=== PATIENT | female | born 1985 | race Caucasian/White ===

== ENCOUNTER 2017-07-24 09:16 | Emergency (ER) | payer BC, OTHER ==
[~2017-07-24] VITALS: Ht 160 cm; Wt 65.8 kg
--- NOTE | ~2017-07-24 | EKG ---
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
[2017-07-24 09:35] LABS: HEMATOCRIT 48.2 % (37.0-47.0); HEMOGLOBIN 16.1 gm/dL (12.0-15.0); MCH 30.2 pg (26.0-34.0); MCHC 33.4 g/dL (28.0-37.0); MCV 90.5 fL (80.0-100.0); RBC 5.33 mil/uL (4.20-5.00); WBC 13.3 thou/uL (4.0-11.0)
[2017-07-24 09:43] LABS: ANION GAP 15 mmol/L (7-16); BUN 16 mg/dL (7-18); CALCIUM 9.8 mg/dL (8.5-10.1); CHLORIDE 101 mmol/L (98-107); CO2 24 mmol/L (21-32); GLUCOSE 118 mg/dL (74-106); SODIUM 140 mmol/L (136-145)
[2017-07-24 09:52] LABS: LIPASE 155 U/L (73-393); TROPONIN-I < 0.04 ng/mL (<0.06)
[2017-07-24 09:55] LABS: URINE BILIRUBIN NEGATIVE (Negative); URINE BLOOD NEGATIVE (Negative); URINE CLARITY CLEAR; URINE COLOR YELLOW; URINE GLUCOSE-RANDOM* NEGATIVE (Negative); URINE KETONES 3+ (Negative); URINE LEUKOCYTES 1+ (Negative); URINE NITRITE NEGATIVE (Negative); URINE PROTEIN (DIPSTICK) TRACE (Negative); URINE SPECIFIC GRAVITY 1.015 (1.005-1.035); URINE UROBILINOGEN 0.2 E.U./dl (0.2-1.0)
[2017-07-24 10:06] LABS: URINE REDUCING SUBSTANCE NEGATIVE
[2017-07-24 10:07] LABS: CASTS None Seen /LPF (None Seen); SQUAMOUS >10 Many /LPF (0-3)
[2017-07-24 10:08] LABS: BACTERIA 1-9 Few /HPF (None Seen); CRYSTALS None Seen /LPF (None Seen); URINE RBC None Seen /HPF (0-2); URINE WBC 6-15 Few /HPF (0-5)
[2017-07-24 10:13] LABS: AMP/METHAMP Negative (Negative); BARBITURATES Negative (Negative); BENZODIAZEPINES Negative (Negative); COCAINE Negative (Negative); METHADONE Negative (Negative); OPIATES Negative (Negative); PCP Negative (Negative)
[2017-07-24] MEDS ORDERED: LEVSIN0.125 MG PO (10:57)
[2017-07-24] MEDS ORDERED: HYDROCODONE-AP1 EAC6 PO (10:57)
[2017-07-24] MEDS ORDERED: ONDANSETRON HCL4 M2 PO (10:57)
[2017-07-24] MEDS ORDERED: KEFLEX500 M1 PO (10:59)
[2018-02-24] MEDS ORDERED: ZOFRAN ODT8 MG PO (06:42)
[2018-02-24] MEDS ORDERED: PEPCID20 MG PO (06:44)
[2018-02-24] MEDS ORDERED: BACTRIM DS TAB1 EACH PO (06:46)
== END 2017-07-24 13:51 ==
LOC: ER 09:16
PROVIDERS: Physician Assistant
DX: N39.0 Urinary tract infection, site not specified (principal); E87.6 Hypokalemia; F12.90 Cannabis use, unspecified, uncomplicated; Z88.1 Allergy status to other antibiotic agents

== ENCOUNTER 2018-01-11 07:14 | Emergency (ER) | payer BC, OTHER ==
[~2018-01-11] VITALS: Ht 172.7 cm; Wt 79.4 kg
--- NOTE | ~2018-01-11 | EKG ---
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: [facility] : 1985 Requested By: Frantz Pruitt Order Number: [id number] MD: Jomar Carmichael Measurements Intervals [place] Rate: 39 P: 41 TN: 128 QRS: 46 QRSD: 97 T: 55 QT: 489 QTc: 394 Interpretive Statements Sinus bradycardia Otherwise no significant abnormality Compared to ECG 07/24/2017 10:07:18 No significant change was found Electronically Signed On 01-11-2018 8:54:38 CDT by Jomar Carmichael [email or web address] <ELECTRONICALLY SIGNED> By: Jomar Carmichael MD, [facility] 01/11/18 0854 0838 0838 Jomar Carmichael MD, FACC /EPI
[~2018-01-11 07:14] MED LIST: HYDROCODONE-AP1 EAC6 PO; KEFLEX500 M1 PO; LEVSIN0.125 MG PO; ONDANSETRON HCL4 M2 PO
[2018-01-11] MEDS ORDERED: LEXAPRO 10 MG T10 M2 PO (07:35)
[2018-01-11] MEDS ORDERED: ESCITALOPRAM OX10 MG PO (07:36)
[2018-01-11 07:41] LABS: ABSOLUTE NEUTROPHILS 9.3 thou/uL (1.4-8.2); BASOPHILS 0.5 % (0.0-2.0); EOSINOPHILS 0.3 % (0.0-3.0); HEMATOCRIT 43.3 % (37.0-47.0); HEMOGLOBIN 14.6 gm/dL (12.0-15.0); LYMPHOCYTES 12.6 % (24.0-44.0); MCH 30.7 pg (26.0-34.0); MCHC 33.7 g/dL (28.0-37.0); MONOCYTES 3.2 % (1.0-8.0); PLATELET COUNT 251 thou/uL (150-400); POLYS 83.4 % (36.0-66.0); RBC 4.76 mil/uL (4.20-5.00); RDW 13.4 % (10.5-14.5); WBC 11.2 thou/uL (4.0-11.0)
[2018-01-11 08:00] LABS: CALCIUM 10.1 mg/dL (8.5-10.1); POTASSIUM 3.4 mmol/L (3.5-5.1)
[2018-01-11 08:06] LABS: ALBUMIN 4.7 g/dL (3.4-5.0); TOTAL BILIRUBIN 0.6 mg/dL (<0.1-1.0); TOTAL PROTEIN 8.2 g/dL (6.4-8.2)
[2018-01-11 08:32] LABS: URINE BILIRUBIN NEGATIVE (Negative); URINE BLOOD NEGATIVE (Negative); URINE CLARITY CLEAR; URINE COLOR YELLOW; URINE GLUCOSE-RANDOM* NEGATIVE (Negative); URINE KETONES 1+ (Negative); URINE LEUKOCYTES-REFLEX NEGATIVE (Negative); URINE NITRITE-REFLEX NEGATIVE (Negative); URINE PROTEIN (DIPSTICK) TRACE (Negative); URINE SPECIFIC GRAVITY 1.015 (1.005-1.035); URINE UROBILINOGEN 0.2 E.U./dl (0.2-1.0)
[2018-01-11] MEDS ORDERED: ONDANSETRON HCL4 M2 PO (08:50)
[2018-01-11 10:14] VITALS: BP 126/71
[2018-01-12] MEDS ORDERED: COMPAZINE10 MG PO (12:09)
[2018-01-12] MEDS ORDERED: NORCO 5-325 TA1 EACH PO (12:09)
== END 2018-01-11 10:15 | disposition home or self-care (01) ==
LOC: ER 07:14
PROVIDERS: Emergency Medicine
DX: R10.13 Epigastric pain (principal); R11.2 Nausea with vomiting, unspecified; R68.83 Chills (without fever); G43.909 Migraine, unspecified, not intractable, without status migrainosus; E28.2 Polycystic ovarian syndrome; Z87.42 Personal history of other diseases of the female genital tract; Z88.8 Allergy status to other drugs, medicaments and biological substances

== ENCOUNTER 2018-01-12 10:06 | Emergency (ER) | payer BC, OTHER ==
[~2018-01-12] VITALS: Ht 152.4 cm; Wt 68.0 kg
--- NOTE | ~2018-01-12 | EKG ---
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
[~2018-01-12 10:06] MED LIST changes: +ESCITALOPRAM OX10 MG PO; +LEXAPRO 10 MG T10 M2 PO
[2018-01-12 10:29] LABS: ABSOLUTE NEUTROPHILS 10.9 thou/uL (1.4-8.2); BASOPHILS 0.3 % (0.0-2.0); EOSINOPHILS 0.1 % (0.0-3.0); HEMATOCRIT 43.4 % (37.0-47.0); HEMOGLOBIN 14.8 gm/dL (12.0-15.0); MCH 30.6 pg (26.0-34.0); MCHC 34.1 g/dL (28.0-37.0); MCV 89.8 fL (80.0-100.0); MONOCYTES 7.5 % (1.0-8.0); PLATELET COUNT 231 thou/uL (150-400); POLYS 80.1 % (36.0-66.0); RBC 4.83 mil/uL (4.20-5.00); RDW 13.4 % (10.5-14.5); WBC 13.7 thou/uL (4.0-11.0)
[2018-01-12 10:41] LABS: CREATININE 1.1 mg/dL (0.6-1.0); POTASSIUM 3.3 mmol/L (3.5-5.1)
[2018-01-12 10:47] LABS: ALBUMIN 4.8 g/dL (3.4-5.0); TOTAL BILIRUBIN 0.8 mg/dL (<0.1-1.0); TOTAL PROTEIN 8.1 g/dL (6.4-8.2)
[2018-01-12] MEDS ORDERED: NORCO 5-325 TA1 EACH PO (12:09)
[2018-01-12] MEDS ORDERED: COMPAZINE10 MG PO (12:09)
[2018-01-12 12:32] VITALS: BP 128/59
== END 2018-01-12 12:34 | disposition home or self-care (01) ==
LOC: ER 10:06
PROVIDERS: Physician Assistant
DX: F12.10 Cannabis abuse, uncomplicated (principal); E86.0 Dehydration; E87.6 Hypokalemia; R11.2 Nausea with vomiting, unspecified; R10.13 Epigastric pain; N80.9 Endometriosis, unspecified; G43.909 Migraine, unspecified, not intractable, without status migrainosus; E28.2 Polycystic ovarian syndrome; Z88.8 Allergy status to other drugs, medicaments and biological substances